=== PATIENT | female | born 1955 | race Caucasian/White ===

== ENCOUNTER 2023-10-05 13:39 | Outpatient (REF) | payer MEDICARE, BC, SELFPAY ==
[2023-10-05 15:12] LABS: Vitamin B12 217 pg/mL (200-900)
== END 2023-10-05 13:40 | disposition home or self-care (01) ==
LOC: HO.LAB 13:39
PROVIDERS: PCP Internal Medicine; Visit Provider Psychiatry & Neurology Neurology
DX: G30.9 Alzheimer's disease, unspecified (principal)
CPT/HCPCS: 36415; 82607

== ENCOUNTER 2023-11-09 08:50 | Outpatient (REF) | payer MEDICARE, BC, SELFPAY ==
--- NOTE | ~2023-11-09 | MR_ITS ---
EXAMINATION: MR BRAIN WITHOUT CONTRAST CLINICAL INFORMATION: Alzheimer's disease. COMPARISON: None available. TECHNIQUE: MRI of the brain was obtained using routine sequences without contrast. FINDINGS: No focal restricted diffusion is demonstrated to suggest acute or subacute cerebral ischemia. No evidence of acute or chronic hemorrhagic products on heme-sensitive imaging. Scattered periventricular and deep white matter T2 FLAIR hyperintensities consistent with mild underlying microangiopathy. Proportional prominence of the ventricles and sulcal spaces without evidence of obstructive hydrocephalus. No abnormal mass effect. No midline shift. Normal appearance of the pituitary gland. Normal positioning of the cerebellar tonsils. Normal arterial and venous vascular flow voids are present. Normal, homogeneous marrow signal. Mild mucosal thickening of the paranasal sinuses. Moderate rightward nasal septal deviation. No signal abnormalities within the mastoids. MR/MR head/brain wo con IMPRESSION: 1. No acute intracranial abnormalities. 2. Mild underlying microangiopathy and generalized cerebral volume loss.
== END 2023-11-09 08:51 | disposition home or self-care (01) ==
LOC: HO.MRI 08:50
PROVIDERS: PCP Internal Medicine; Visit Provider Psychiatry & Neurology Neurology
DX: G30.9 Alzheimer's disease, unspecified (principal)
CPT/HCPCS: 70551

== ENCOUNTER 2025-04-03 09:12 | Outpatient (AMB) | payer MEDICARE, BC, SELFPAY ==
--- NOTE | 2025-04-03 09:20 | A.OFFVIS_ITS ---
Intake Visit Reasons: 6 Months Allergies No Known Allergies Allergy (Verified 03/27/25 06:34) Medication List - Last Reconciled 04/03/25 by Aidan Foreman MD amlodipine 5 mg PO DAILY lisinopril 20 mg PO DAILY memantine 10 mg PO BID sertraline 25 mg PO DAILY simvastatin 10 mg PO BEDTIME HPI Comments Details: The patient is a 69-year-old female presenting with care management and support for Alzheimer's disease. Her condition has rapidly worsened since June, leading to increased dependency on her sister for daily assistance. She exhibits withdrawal from previously managed activities, showing little interest in exercise or hydration and prefers to remain sedentary. There is marked refusal to engage with technology aids or partake in self-care strategies, despite attempts to encourage such activities. The patient?s behavioral changes, including the choice to remain seated and becoming unreceptive to lifestyle advice, accompany a broader decline in mental activity. Defining past events include the loss of her close friend four years ago, marking the onset of observable memory issues, although recognition of Alzheimer's as a diagnosis came later. Despite previous experience with Alzheimer's care, her sister faces constraints in care provision, compounded by the patient's resistance and eligibility challenges for some support services. [facility] Medical History (Updated 04/03/25 @ 09:27 by Aidan Foreman MD) Alzheimer disease Review of Systems Const Details: - Neurological: Reports memory issues, withdrawal from daily activities. Denies interest in exercise and hydration. - Musculoskeletal: Reports spending most of the time seated. - Psychiatric: Reports depression indicated by lack of interest in engaging with surroundings. Assessment & Plan Assessment & Plan (1) Alzheimer disease: Comment: MRI brain WO at [facility] in Nov 2023: mod diff atrophy. Code(s): G30.9 - Alzheimer's disease, unspecified; F02.80 - Dementia in other diseases classified elsewhere, unspecified severity, without behavioral disturbance, psychotic disturbance, mood disturbance, and anxiety Category: Medical Plan The conversation focused on managing the patient's Alzheimer?s disease progression with minimal intervention stress. Discussion highlighted non-pharmacological aspects, particularly accommodating the patient's preferences in daily life to promote ease. Challenges with public health benefits due to financial and insurance constraints were addressed, considering private agencies as an alternative. I advised the sister to avoid elevating her stress concerning patient compliance with certain interventions like exercise, and instead prioritize effective support strategies. Follow-up visits with the primary care physician will continue to monitor health progression, with a focus on patient and caregiver support. Medications: New memantine 10 mg PO BID 180 tabs 1RF sertraline 25 mg PO DAILY 90 tabs 1RF Coding Level of Care Code Est Pt Level 5 (86940) Diagnoses Alzheimer disease G30.9; F02.80
--- OUTSIDE RECORDS SUMMARY | 2025-04-03 10:12 | XMS_ITS ---
Author Name [facility] Organization Unknown Care Team Organization Name Specialty Phone Email Start Date End Da te [facility] ACO 03/26/2025 [facility] 10/12/2022 03/25/2024 [facility] Termed, PROVIDER Primary Care 06/14/202203/07
--- OUTSIDE RECORDS SUMMARY | 2025-04-03 10:13 | XMS_ITS | Clinical Summary ---
Author Organization [facility] [address] [place] [address] Address [address], [place] Phone Care Team Providers Care Traffic Control Signaler Name Role Phone Elida Toussaint MD Primary Care Provider [phone] Medications bisacodyL (DULCOLAX) 5 mg EC tablet 03/08/2023 Active cholecalciferol (VITAMIN D-3) 50 mcg (2,000 unit) tablet Take 1 Tablet by mouth daily. 07/21/2022 Active DAILY MULTI-VITAMIN ORAL Take by mouth. Active memantine (NAMENDA) 10 mg tablet Take 1 tablet (10 mg total) by mouth 2 (two) times a day. Active simvastatin (ZOCOR) 10 mg tablet TAKE 1 TABLET BY MOUTH EVERYDAY AT BEDTIME 90 tablet 01/07/2025 Active lisinopriL (PRINIVIL,ZESTR IL) 20 mg tablet Take 1 tablet (20 mg total) by mouth 1 (one) time each day. 90 each 02/03/2025 Active Active Problems Problem Noted Date Diagnosed Date Vitamin D deficiency 07/21/2022 Hypertension 11/05/2019 DDD (degenerative disc disease), lumbar 04/19/20 17 Hyperlipidemia 04/19/2017 Overweight 12/16/2015 Encounters Date Type Department Care Team Description 02/03/2025 1:30 PM EDT Office Visit Adult Medicine [facility] [address], [place] [phone] Mita Finch PA Primary hypertension (Primary Dx); Bilateral edema of lower extremity; Hyperlipidemia, unspecified hyperlipidemia type; Mild early onset Alzheimer's dementia without behavioral disturbance, psychotic disturbance, mood disturbance, or anxiety ([facility] V24, [facility] V28) from Last 3 Months Immunizations Name Administration Dates Next Due Influenza Quadravalent, MDCK , 0.5ml, preservative free (Flucelvax) 6mo and older 08/05/2019 Influenza trivalent, 0.5mL ( Fluad) 65yo and older 05/26/2023,07/21/2022,05/08/2021 Moderna SARS-CoV-2 COVID-19, mRNA, LNP-S, preservative free 10/25/2020 Pneumococcal conjugate 20 va lent (Prevnar 20, PCV 20) 2mo and older 08/04/2023 Tdap Tetanus diptheria acell ular pertussis (Boostrix; Adacel) 7yo and older 12/16/2015 Zoster Live 12/16/2015 Zoster recombinant (Shingrix ) 19yo and older 08/17/2020,05/19/2020 Surgical History Surgery Date Site/Laterality Comments COLONOSCOPY 01/15/2016 PROCEDURE: HISTORICAL COLONOSCOPY; COMMENT: 5 mm sigmoid colon polyp: Tubular adenoma Family History Medical History Relation Name Comments Suicide Attempts Brother Alzheimer's disease Father 74 Diabetes Mother Colon cancer Paternal Grandfather 50's Breast cancer Neg Hx Relation Name Status Comments Brother suicide Father alzheimers 74 Mother alzheimers 84 Paternal Grandfather 50's Sister Social History Tobacco Use Types Packs/Day Years Used Date Smoking Tobacco: Former Cigarettes 0.3 28.4 0 08/07/1981 - 12/15/2009 Smokeless Tobacco: Never Tobacco Cessation:Counseling Given: Not Answered Alcohol Use Standard Drinks/Week Comments Yes 0 (1 standard drink = 0.6 oz pur e alcohol) Comments No Sex and Gender Information Value Date Recorded Sex Assigned at Not on file Legal Sex Female 2:53 AM EST Gender Identity Not on file Sexual Orientation Not on file Obstetrics History Para Term AB IAB SAB Ectopic Multiple Livin g Live Births 0 0 0 0 Last Filed Vital Signs Vital Sign Reading Time Taken Comments Blood Pressure 133/86 02/03/2025 1:39 PM EDT Pulse 80 02/03/2025 1:39 PM EDT Temperature 37 C (98.6 F) 02/03/2025 1:39 PM EDT Respiratory Rate 16 02/03/2025 1:39 PM EDT Oxygen Saturation - - Inhaled Oxygen Concentration - - Weight 93.9 kg (207 lb) 02/03/2025 1:39 PM EDT Height 165.1 cm (5' 5 ) 02/03/2025 1:39 PM EDT Body Mass Index 34.45 02/03/2025 1:39 PM EDT Plan of Treatment Upcoming Encounters Date Type Department Care Team (Late st Contact Info) Description 04/04/2025 8:00 AM EDT Office Visit Adult Medicine [facility] [address] [place] [address] [phone] Elida Toussaint MD [address] [place] [id number] Health Maintenance Due Date Last Done Comments Cervical Cancer Screening: HPV 1976 Medicare Annual Wellness Visit 07/16/2022 Social Influencers of Health Screening 07/16/2022 COVID-19 Vaccine ( season) 2024 07/28/2021, 11/23/2020, 10/25/2020 Falls Risk Assessment 08/04/2024 08/04/2023 Hypertension/CHF/CAD Annual BMP Blood Test 08/04/2024 08/04/2023 Depression Screening 08/07/2024 08/04/2023 Influenza Vaccine (#1) 2025 , 07/21/2022, 05/17/2021, Additional history exists DTaP,Tdap,and Td Vaccines (2 - Td or Tdap) 12/15/2025 12/16/2015 Breast Cancer Screening 12/24/2026 12/25/19, 12/19/2023, 12/19/2023, Additional history exists Cholesterol Screening (Lipid Panel) 08/04/2028 08/04/2023 Colorectal Cancer Screening: Colonoscopy 04/18/2029 04/18/2024 RSV Immunization Adult Patients (1 - 1-dose 75+ series) 2030 Osteoporosis Screening (Bone Density Screening) 12/18/2033 12/19/2023, 12/19/2023 Hepatitis C Screening Completed 02/04/2020 Zoster Vaccines Completed 08/17/2020, 05/07, 12/16/2015 Pneumococcal Vaccine: 50+ Years Completed 08/04/2023 HIB Vaccines Aged Out No longer eligi ble based on patient's age to complete this topic HPV Vaccines Aged Out No longer eligi ble based on patient's age to complete this topic Hepatitis A Vaccines Aged Out No long er eligible based on patient's age to complete this topic Hepatitis B Vaccines Aged Out No long er eligible based on patient's age to complete this topic IPV Vaccines Aged Out No longer eligi ble based on patient's age to complete this topic MMR Vaccines Aged Out No longer eligi ble based on patient's age to complete this topic Meningococcal ACWY Vaccine Aged Out N o longer eligible based on patient's age to complete this topic Meningococcal B Vaccine Aged Out No l onger eligible based on patient's age to complete this topic RSV Immunization Patients Under 20 months Aged Out No longer eligible based on patient's age to complete this topic Varicella Vaccines Aged Out No longer eligible based on patient's age to complete this topic Procedures Procedure Name Priority Date/Time Associated Diagnosis Comments MG MAMMO DIGITAL SCREENING W FELICIANO BILAT Routine 12/24/2024 4:04 PM EDT Encounter for screening mammogram for breast cancer COLONOSCOPY Routine 04/18/2024 DXA BONE DENSITY STUDY 1+ SITS AXIAL SKEL Routine 12/19/2023 9:14 AM EDT Other specified personal risk factors, not elsewhere classified DEPRESSION SCREENING Routine 08/04/2023 ANNUAL BMP BLOOD TEST Routine 08/04/2023 FALLS RISK ASSESSMENT Routine 08/04/2023 LIPID PANEL Routine 08/04/2023 HEPATITIS C SCREENING Routine 02/04/2020 from Last 3 Months or Most Recently Relevant to Health Maintenance Results * MG Mammo Digital Screening w Feliciano bilat (12/24/2024 4:04 PM EDT) Anatomical Region Laterality Modality Breast Bilateral Mammography 12/25/2024 9:13 AM EDT Impressions 12/25/2024 9:18 AM EDT BILATERAL BREASTS: Negative, no evidence of malignancy. Normal interval follow- up is recommended in 12 months. BREAST DENSITY: C - The breasts are heterogeneously dense which may obscure small masses. BI-RADS CATEGORY: 1 - NEGATIVE RECOMMENDATION: Screening bilateral mammogram is recommended in 1 year. Mammo Location: [facility], [address] [place] [address], [id number], . -------- FINAL REPORT -------- Dictated By: Amaris Arguelles Dictated Date: 12/25/2024 09:13 ET Assigned Physician: Amaris Arguelles Reviewed and Electronically Signed By: Amaris Arguelles Signed Date: 12/25/2024 09:18 ET Workstation ID: [id number] Transcribed By: Self Edit Transcribed Date: 12/25/2024 09:13 ET Narrative 12/25/2024 9:18 AM EDT STUDY: Bilateral screening mammography with tomosynthesis and CAD TECHNIQUE: Bilateral full-field digital screening mammography is obtained and read in conjunction with computer-aided detection. Tomosynthesis as well as 2-D C view imaging were obtained. COMPARISON: Comparison made to multiple prior, most recent December 19, 2023, and most remote December 31, 2015. BILATERAL BREASTS: No significant masses, suspicious calcifications or other abnormalities are seen in either breast. Procedure Note Amaris Arguelles MD - 12/25/2024 STUDY: Bilateral screening mammography with tomosynthesis and CAD TECHNIQUE: Bilateral full-field digital screening mammography is obtainedand read in conjunction with computer-aided detection. Tomosynthesis aswell as 2-D C view imaging were obtained. COMPARISON: Comparison made to multiple prior, most recent December 19, 2023,and most remote December 31, 2015. BILATERAL BREASTS: No significant masses, suspicious calcifications orother abnormalities are seen in either breast. IMPRESSION: BILATERAL BREASTS: Negative, no evidence of malignancy. Normal intervalfollow-up is recommended in 12 months. BREAST DENSITY: C - The breasts are heterogeneously dense which mayobscure small masses. BI-RADS CATEGORY: 1 - NEGATIVE RECOMMENDATION: Screening bilateral mammogram is recommended in 1 year. Mammo Location: [facility], [address] [place] [address], [id number], . -------- FINAL REPORT -------- Dictated By: Amaris Arguelles Dictated Date: 12/25/2024 09:13 ET Assigned Physician: Amaris Arguelles Reviewed and Electronically Signed By: Amaris Arguelles Signed Date: 12/25/2024 09:18 ET Workstation ID: [id number] Transcribed By: Self Edit Transcribed Date: 12/25/2024 09:13 ET Elida Toussaint MD IM BI PROCEDURES Final Result * Colonoscopy (04/18/2024) Colonoscopy No Interpretation , Abstracted Anatomical Region Laterality Modality Other Historical Provider [facility] Final Result * DXA BONE DENSITY STUDY 1+ SITS AXIAL SKEL (12/19/2023 9:14 AM EDT) Anatomical Region Laterality Modality Bone Densitometr y 07/21/2022 8:38 AM EST Narrative 12/20/2023 9:09 AM EDT BONE DENSITY Lumbar Spine T-score is +1.2 (SD relative to 20-29 y/o adult) Z-score is +3.3 (SD relative to age matched peers) This is normal by criteria defined by the WHO. Left Hip T-score is -0.8 Z-score is +0.9 This is normal by criteria defined by the WHO. . Impression: Based on the World Health Organization criteria, Dorota Woods should be classified as having normal bone density. The [facility] Department of Internal Medicine recommends using National Osteoporosis Foundation (NOF) guidelines in treatment decisions related to osteoporosis. NOF guidelines suggest considering treatment for postmenopausal women and men aged 50 or older presenting with the following: History of hip or vertebral fracture. T-score less than or equal to -2.5 (DXA) at the femoral neck, total hip, or spine, after appropriate evaluation to exclude secondary causes. Low bone mass (T-score between -1.0 and -2.5 at the femoral neck or spine) AND a 10-year probability of a hip fracture greater than or equal to 3% OR a 10-year probability of a major osteoporosis-related fracture greater than or equal to 20% based on the [place]-adapted WHO algorithm Please note that all treatment decisions require clinical judgment and consideration of individual patient factors, including patient preferences, co-morbidities, previous drug use, risk factors not captured in the FRAX model (e.g., frailty, falls, vitamin D deficiency, increased bone turnover, interval significant decline in bone density) and possible under- or over-estimation of fracture risk by FRAX. Procedure Note Sarah Beth Moore MD - 03/25/2024 BONE DENSITY Lumbar Spine T-score is +1.2 (SD relative to 20-29 y/o adult) Z-score is +3.3 (SD relative to age matched peers) This is normal by criteria defined by the WHO. Left Hip T-score is -0.8 Z-score is +0.9 This is normal by criteria defined by the WHO. . Impression: Based on the World Health Organization criteria, Dorota Woods should beclassified as having normal bone density. The [facility] Department of Internal Medicine recommendsusing National Osteoporosis Foundation (NOF) guidelines in treatmentdecisions related to osteoporosis. NOF guidelines suggest consideringtreatment for postmenopausal women and men aged 50 or older presentingwith the following: History of hip or vertebral fracture. T-score less than or equal to -2.5 (DXA) at the femoral neck, total hip,or spine, after appropriate evaluation to exclude secondary causes. Low bone mass (T-score between -1.0 and -2.5 at the femoral neck or spine)AND a 10-year probability of a hip fracture greater than or equal to 3% ORa 10-year probability of a major osteoporosis-related fracture greaterthan or equal to 20% based on the [place]-adapted WHO algorithm Please note that all treatment decisions require clinical judgment andconsideration of individual patient factors, including patientpreferences, co-morbidities, previous drug use, risk factors not capturedin the FRAX model (e.g., frailty, falls, vitamin D deficiency, increasedbone turnover, interval significant decline in bone density) and possibleunder- or over-estimation of fracture risk by FRAX. Brady ULRICH IMG DXA PROCEDURES Final Result * Annual BMP Blood Test (08/04/2023) [facility] Annual BMP Blood Test Abstracted Result [facility] HEALTH MAINTENANCE Final Result * Falls Risk Assessment (08/04/2023) [facility] Falls Risk Assessment Abstracted Result [facility] HEALTH MAINTENANCE Final Result * Depression Screening (08/04/2023) [facility] Depression Screening Abstracted Result [facility] HEALTH MAINTENANCE Final Result * (ABNORMAL) Lipid panel (08/04/2023) [facility] LDL/HDL Ratio 2 0 - 4 Triglycerides 112 0 - 150 mg/dL Cholesterol 201(A) 0 - 200 mg/dL HDL 88 >=40 mg/dL LDL Cholesterol 91 0 - 100 mg/dL Blood Venous blood specimen / Unknown Result [facility] LAB BLOOD ORDERABLES Mary l Result * Hepatitis C Screening (02/04/2020) [facility] Hepatitis C Screening Abstracted Result [facility] HEALTH MAINTENANCE Final Result from Last 3 Months or Most Recently Relevant to Health Maintenance Insurance [facility] MEDICARE Advance Directives Documents on File Type Date Recorded Patient Analytical Research Chemist Expl anation Health Care Decision (hx) 04/18/2024 HE ALTH CARE PROXY Care Teams Traffic Control Signaler Relationship Specialty Start Date End Date Elida Toussaint MD [address] [place] [id number] PCP - General Internal Medicine 06/12/24
--- OUTSIDE RECORDS SUMMARY | 2025-04-03 10:13 | XMS_ITS | Patient Health Record ---
Author Organization [facility] Address [address] [place] [address] Care Team Providers Care Practice Representative Name Role Phone Tyson Spaulding MD Primary Care Provider Unav ailable Chato Moralesik Unavailable [phone] Reason For Referral No Information Medications Medication SIG (Take, Route, Fr equency, Duration) Notes Start Date End Date Status Ciclopirox 8 % External; Duration: 14 Active Lisinopril 10 MG Oral; Duration: 90 Active Social History Tobacco Use: Social History Observation Description Date Details (start date - stop date) Former Smoker NA - NA Tobacco Use/Smoking Question Answer Notes Are you a: former smoker When did you start smoking? 7 yearas ago Alcohol Screen Question Answer Notes Did you have a drink containing alcohol in the p ast year? Yes Points 0 Interpretation Negative Tobacco use other than smoking: Question Answer Notes Are you an other tobacco user? No Plan Of Treatment Pending Test Test Name Order Date [id number] Plate 12/16/2019 [id number] Plate 01/06/2020 Insurance Providers Payer Name Payer Address Payer Phone Subscriber Number Group Number Insured Name Patient Relationship to Insured Coverage Start Date Coverage End Date [facility] [address] [place] [address] [id number] Dorota Rashid Self - patient is the insured 0 Medical (General) History Medical History History ICD Code Hypertension Measles Chicken pox Surgical History Surgery Date(Month/Year)
== END 2025-04-03 09:33 | disposition home or self-care (01) ==
LOC: HO.HSM 09:12
PROVIDERS: PCP Internal Medicine; Referring Provider Internal Medicine; Visit Provider Psychiatry & Neurology Neurology
DX: G30.9 Alzheimer's disease, unspecified (principal); F02.80 Dementia in other diseases classified elsewhere, unspecified severity, without behavioral disturbance, psychotic disturbance, mood disturbance, and anxiety
CPT/HCPCS: 99214

== ENCOUNTER → 2025-04-03 09:12 | Outpatient (BNVA) | payer MEDICARE, BC, SELFPAY | PROVIDERS: PCP Internal Medicine; Referring Provider Internal Medicine; Visit Provider Psychiatry & Neurology Neurology | DX: G30.9 Alzheimer's disease, unspecified (principal); F02.80 Dementia in other diseases classified elsewhere, unspecified severity, without behavioral disturbance, psychotic disturbance, mood disturbance, and anxiety | CPT/HCPCS: 99212 ==